=== PATIENT | male | born 1985 | race Caucasian/White ===

== ENCOUNTER 2024-01-27 17:55 | Emergency (ER) | payer OTHER ==
[~2024-01-27 17:55] MED LIST: Iopamidol 370 76% 100 ML VIAL ONE
[2024-01-27 20:01] LABS: #Basophils 0.07 10x3/uL (0.0-0.2); #Eosinphils 0.11 10x3/uL (0.0-0.5); #Neutrophils 3.29 10x3/uL (1.5-8.4); %Basophils 1.1 % (0.0-2.0); %Eosinophils 1.8 % (0.0-6.0); %Lymphocytes 34.2 % (18.0-47.0); %Monocytes 9.6 % (0.0-10.0); %Neutrophils 52.8 % (40.0-75.0); Hemoglobin 15.9 g/dL (13.5-17.5); Mean Corpuscular Hemoglobin 32.1 pg (27.0-33.0); Mean Corpuscular Volume 86.9 fl (81.2-95.1); Mean Platelet Volume 11.7 fl (7.4-10.4); Platelet Count 208 10x3/uL (150-450); RBC Distribution Width 12.3 % (11.5-14.5); Red Blood Cell (RBC) Count 4.95 10x6/uL (4.32-5.72); White Blood Cell (WBC) Count 6.2 10x3/uL (3.5-10.5)
[2024-01-27 20:07] LABS: ALT (SGPT) 51 U/L (8-55); AST (SGOT) 24 U/L (5-34); Alkaline Phosphatase 51 U/L (40-110); Anion Gap 12 mmol/L (10-20); BUN (Urea Nitrogen) 16 mg/dL (8.9-20.6); Bilirubin, Total 0.4 mg/dL (0.2-1.2); Calc. Creatinine Clearance 0 mL/min (70-130); Calcium 9.4 mg/dL (7.8-10.44); Carbon Dioxide 27 mmol/L (22-29); Chloride 103 mmol/L (98-107); Estimated GFR 106; Globulin 3.2 g/dL (2.4-3.5); Glucose 97 mg/dL (70-105); Magnesium 2.3 mg/dL (1.6-2.6); Potassium 3.8 mmol/L (3.5-5.1); Protein, Total 7.2 g/dL (6.0-8.3); Sodium 138 mmol/L (136-145)
[2024-01-27 20:14] LABS: Troponin I Less than 0.010 ng/mL (< 0.028)
== END 2024-01-27 21:17 | disposition home or self-care (01) ==
LOC: CSHERS 17:55
DX: G51.0 Bell's palsy (principal); F17.220 Nicotine dependence, chewing tobacco, uncomplicated
CPT/HCPCS: 70450; 70496; 70498; 80053; 83735; 84484; 85025; 93005; Q9967